=== PATIENT | female | born 1985 | race Caucasian/White ===

== ENCOUNTER 2019-02-12 18:20 | Emergency (ER) | payer BC ==
[2019-02-12] MEDS ORDERED: Penicillin V Potassium 500 MG Tab PO ONE (19:02)
--- NOTE | 2019-02-12 19:09 | EDM.PDOC ---
ED HPI GENERAL MEDICAL PROBLEM - General Chief Complaint: ENT Problem Stated Complaint: STREP THROAT Time Seen by Provider: 02/12/19 18:50 Source of Information: Reports: Patient History Limitations: Reports: No Limitations - History of Present Illness INITIAL COMMENTS - FREE TEXT/NARRATIVE: Presents with sore throat for 3 days, fever, and cough. Has not been drinking much fluids due to throat pain. She cannot remember the last time she urinated. Onset Date: 02/09/19 Duration: Day(s): (3) Associated Symptoms: Reports: Fever/Chills Treatments [employer]: Reports: Acetaminophen - Related Data Allergies Allergy/AdvReac Type Severity Reaction Status Date / Time No Known Allergies Allergy Verified 02/12/19 18:41 Home Meds: Home Meds Escitalopram Oxalate 20 mg PO DAILY 02/12/19 [History] Penicillin V Potassium 500 mg PO BID #20 tablet 02/12/19 [Rx] Past Medical History Psychiatric History: Reports: Depression Social & Family History - Family History Family Medical History: Noncontributory - Tobacco Use Smoking Status *Q: Never Smoker Second Hand Smoke Exposure: No - Caffeine Use Caffeine Use: Reports: Coffee - Recreational Drug Use Recreational Drug Use: No ED ROS ENT - Review of Systems Review Of Systems: ROS reveals no pertinent complaints other than HPI. ED EXAM, ENT - Physical Exam Exam: See Below Exam Limited By: No Limitations General Appearance: Alert, WD/WN Ears: Normal External Exam, Normal TMs Nose: Normal Inspection Mouth/Throat: Pharyngeal Erythema, Tonsillar Exudates. No: Peritonsillar Mass Head: Atraumatic, Normocephalic Neck: Normal Inspection, Supple, Other (anterior cervical lymphadenopathy) Respiratory/Chest: No Respiratory Distress, Lungs Clear, Normal Breath Sounds Cardiovascular: Regular Rate, Rhythm, No Murmur Extremities: Normal Range of Motion Neurological: Alert, Normal Cognition, No Motor/Sensory Deficits Psychiatric: Normal Affect, Normal Mood Skin: Warm, Dry, Intact Course - Vital Signs Last Recorded V/S: Last Vital Signs Temp 37.7 C 02/12/19 18:57 Pulse 130 H 02/12/19 18:57 Resp 18 02/12/19 18:57 BP 121/62 02/12/19 18:57 Pulse Ox 96 02/12/19 18:57 - Orders/Labs/Meds Orders: Active Orders 24 hr Category Date Time Status Sodium Chloride 0.9% [Saline Flush] Med 02/12/19 19:12 Active 10 ml FLUSH ASDIRECTED PRN Saline Lock Insert [OM.PC] Routine Oth 02/12/19 19:12 Ordered Medication Orders Sodium Chloride (Saline Flush) 10 ml FLUSH ASDIRECTED PRN PRN Reason: Keep Vein Open Labs: Laboratory Tests 02/12/19 02/12/19 Range/Units 19:25 19:25 WBC 16.1 H (4.5-12.0) X10-3/uL RBC 4.58 (3.23-5.20) x10(6)uL Hgb 13.4 (11.5-15.5) g/dL Hct 40.3 (30.0-51.3) % MCV 88.0 (80-96) fL MCH 29.2 (27.7-33.6) pg MCHC 33.2 (32.2-35.4) g/dL RDW 12.6 (11.5-15.5) % Plt Count 312 (125-369) X10(3)uL MPV 8.9 (7.4-10.4) fL Neut % (Auto) 84.8 H (46-82) % Lymph % (Auto) 8.3 L (13-37) % [place] % (Auto) 6.2 (4-12) % Eos % (Auto) 0 L (1.0-5.0) % Baso % (Auto) 1 (0-2) % Neut # (Auto) 13.7 H (1.6-8.3) # Lymph # (Auto) 1.3 (0.6-5.0) # [place] # (Auto) 1.0 (0.0-1.3) # Eos # (Auto) 0.0 (0.0-0.8) # Baso # (Auto) 0.1 (0.0-0.2) # Sodium 138 (135-145) mmol/L Potassium 4.0 (3.5-5.3) mmol/L Chloride 101 (100-110) mmol/L Carbon Dioxide 27 (21-32) mmol/L BUN 9 (7-18) mg/dL Creatinine 0.8 (0.55-1.02) mg/dL Est Cr Clr Drug Dosing TNP Estimated GFR (MDRD) > 60 (>60) BUN/Creatinine Ratio 11.3 (9-20) Glucose 98 (80-116) mg/dL Calcium 8.8 (8.6-10.2) mg/dL Rapid Strep: positive Meds: Medications Generic Name Dose Route Start Last Admin Trade Name Freq PRN Reason Stop Dose Admin Sodium Chloride 10 ml 02/12/19 19:12 Saline Flush FLUSH ASDIRECTED PRN Keep Vein Open Discontinued Medications Generic Name Dose Route Start Last Admin Trade Name Freq PRN Reason Stop Dose Admin Sodium Chloride 1,000 mls @ 999 mls/hr 02/12/19 19:12 02/12/19 19:35 Normal Saline IV 02/12/19 20:12 999 mls/hr .BOLUS ONE Administration Penicillin V Potassium 500 mg 02/12/19 19:02 02/12/19 19:54 Veetids PO 02/12/19 19:03 Not Given .ONCE ONE Penicillin V Potassium Confirm 02/12/19 19:18 02/12/19 19:35 Veetids Administered 02/12/19 19:19 500 mg Dose Administration 500 mg .ROUTE .STK-MED ONE - Re-Assessments/Exams Free Text/Narrative Re-Assessment/Exam: 02/12/19 20:29 HR 94 after @750ml NS Departure - Departure Time of Disposition: 20:29 Disposition: Home, Self-Care 01 Condition: Good Clinical Impression: Strep throat - Discharge Information *PRESCRIPTION DRUG MONITORING PROGRAM REVIEWED*: No *COPY OF PRESCRIPTION DRUG MONITORING REPORT IN PATIENT DARLENE: Not Applicable Prescriptions: Penicillin V Potassium 500 mg PO BID #20 tablet Instructions: Strep Throat, [id number] Referrals: Clinton Maki MD [Primary Care Provider] - Forms: ED Department Discharge, ED Return to Work/School Form Additional Instructions: Push fluids. Fill prescription for Penicillin at [facility] and take as directed. Take Tylenol or Ibuprofen as needed. Rest. Follow up in 2 days if symptoms don't improve. Return to the ER if symptoms worsen. - My Orders Last 24 Hours: My Active Orders 02/12/19 19:12 Sodium Chloride 0.9% [Saline Flush] 10 ml FLUSH ASDIRECTED PRN Saline Lock Insert [OM.PC] Routine - Assessment/Plan Last 24 Hours: My Active Orders 02/12/19 19:12 Sodium Chloride 0.9% [Saline Flush] 10 ml FLUSH ASDIRECTED PRN Saline Lock Insert [OM.PC] Routine
[2019-02-12] MEDS ORDERED: Sodium Chloride 0.9% 10 ML Syringe FLUSH PRN (19:12)
[2019-02-12] MEDS ORDERED: Sodium Chloride 0.9% 1,000 ML IV ONE (19:12)
[2019-02-12] MEDS ORDERED: Penicillin V Potassium 250 MG Tab ONE (19:18)
== END 2019-02-12 21:00 | disposition home or self-care (01) ==
LOC: FB.ED 18:20
DX: J02.0 Streptococcal pharyngitis (principal); F32.9 Major depressive disorder, single episode, unspecified; Z79.899 Other long term (current) drug therapy
CPT/HCPCS: 36415; 80048; 85025; 87880; 99283; A9270; J7030

== ENCOUNTER 2022-06-09 20:51 | Emergency (ER) | payer BC ==
[2022-06-09] MEDS ORDERED: Sodium Chloride 0.9% 10 ML Syringe FLUSH PRN ×2 (21:37→21:40)
[2022-06-09] MEDS ORDERED: Ondansetron 4 MG/2 ML SDV IVPUSH ONE (21:40)
[2022-06-09] MEDS ORDERED: Morphine 4 MG/ML VIAL IVPUSH STA (21:40)
[2022-06-09] MEDS ORDERED: Sodium Chloride 0.9% 1,000 ML IV SCH (21:45)
[2022-06-09] MEDS ORDERED: Iopamidol 755 Mg/ML 75 ML Bottle IV ONE (21:55)
[2022-06-09 22:03] LABS: ESTIMATED GFR 98 mL/min (>60)
== END 2022-06-10 00:08 | disposition home or self-care (01) ==
LOC: FB.ED 20:51
DX: K80.50 Calculus of bile duct without cholangitis or cholecystitis without obstruction (principal); N83.201 Unspecified ovarian cyst, right side; Z90.49 Acquired absence of other specified parts of digestive tract
CPT/HCPCS: 36415; 74177; 80053; 81001; 81025; 82150; 83690; 85025; 96361; 96374; 96375; 99284; J2270; J2405; J3490; J7030; Q9967; 99282